=== PATIENT | male | born 1995 | race Caucasian/White ===

== ENCOUNTER 2024-02-07 19:37 | Emergency (ER) | payer OTHER, SELFPAY ==
[2024-02-07 20:01] VITALS: BP 142/86; PULSE 85; RESP 20; TEMP 37; O2SAT 99; BMI 30.1
[2024-02-07 21:37] VITALS: BP 135/78; PULSE 80; RESP 20; TEMP 37; O2SAT 99
--- NOTE | 2024-02-07 22:17 | ED_ITS ---
HPI - Chest Pain General Time Seen by Provider: 22:17 Date Seen: 02/07/24 Chief Complaint: Chest Pain Stated Complaint: Chest/abdominal pain Time Seen by Provider: 02/07/24 22:16 Source: patient, family, RN notes reviewed and old records reviewed Mode of arrival: ambulatory Limitations: no limitations History of Present Illness HPI narrative: Pelon is a very pleasant 28-year-old male with a history of chronic intermittent diarrhea and constipation without diagnosis, tobacco user in the form of 2 and vaping who comes to the emergency room for evaluation regarding chest pain. Pelon notes that tonight he was sitting on the couch when the had the sudden onset of left-sided chest pain associated with lightheadedness and difficulty breathing. This lasted about 5 minutes. He felt like his heart was pounding in his chest. He also became super hot he states. Currently he has a mild pressure in the area but not the pain he had felt earlier. He is mostly concerned in regards to his chronic abdominal discomfort. States that for as long as he can remember he has had abdominal pain mainly the left upper quadrant that would radiate to his back. He notes that he is always uncomfortable. Before he has a stool the pain will increase and then it will be relieved by stooling. He intermittently goes between nonbloody diarrhea and constipation. In the past he has had endoscopy which was normal. He also had blood work that looked good. He has no history of a colonoscopy. He denies any recent weight loss or night sweats. He does vape nicotine and notes that when he does that he has increased chest pain. However, earlier today he had to move a couch any had no discomfort at that time. Pelon has not had any recent cough cold congestion or fevers. No known exposures to COVID. He has not had any unusual weight loss or night sweats. Pelon does note that Brittany usually drinks a case of beer over the weekend and did that this past weekend. No history of nausea vomiting or heartburn. No family history of autoimmune disorders celiac disease Crohn's or ulcerative colitis. Related Data Home Medications ?Medication ?Instructions ?Recorded ?Confirmed No Known Home Medications 02/07/24 02/07/24 Allergies Allergy/AdvReac Type Severity Reaction Status Date / Time No Known Drug Allergies Allergy Verified 02/07/24 20:03 Review of Systems Status of ROS Reports: 10 or more systems reviewed and unremarkable except as noted in History and below Const Reports: fatigue; Denies: fever or chills Eyes Denies: change in vision ENMT Denies: throat pain, neck pain, difficulty swallowing or nasal congestion Cardio Reports: chest pain, lightheadedness and shortness of breath with exertion; Denies: palpitations, edema or swelling of feet/ankles Resp Reports: shortness of breath; Denies: cough or wheezing GI Reports: abdominal pain, diarrhea and constipation; Denies: nausea, vomiting, difficulty swallowing or blood in stool Denies: painful urination or urinary frequency Musculo Reports: back pain; Denies: neck pain Neuro Denies: headache Endo Reports: fatigue Allergy/Immuno Denies: wheezing PFSH PFSH Social History Smoking Status: Never smoker Do you use any of these nicotine containing products: Vaping Products Second hand tobacco smoke exposure: No How often do you have a drink containing alcohol: monthly or less How often do you have six or more drinks on one occasion: Less than monthly AUDIT-C Alcohol total score: 2 Non-prescribed substance use: marijuana (any form) Exam Narrative Exam Narrative: Pelon is alert and oriented. Presents with his is very loving and supportive. EOM is full. Face symmetrical. Heart with regular rate and rhythm and lungs are clear bilaterally. Abdomen shows no masses palpated. No significant tenderness with palpation especially left ribcage. Lower extremities without edema. Pedal pulses are intact and symmetrical. Const Vital Signs, click to edit/add: Vital Signs - 24 hr 02/07/24 20:01 02/07/24 22:54 Temperature 98.6 F Pulse Rate [Right Pulse Oximeter] 85 Respiratory Rate 20 Blood Pressure [Left Upper Arm] 142/86 H Pulse Oximetry 99 99 Oxygen Delivery Method Room Air Documenting provider has reviewed patient's vital signs: yes Course Course ED Course: Differential diagnosis includes but is not limited to acute coronary event, pericarditis, pleurisy, anxiety, biliary colic, esophagitis, irritable bowel. Will place IV and draw labs to include CBC, comprehensive panel, CRP, troponin, EKG, magnesium, lactate. Will give Ativan 0.5 mg and normal saline at this time. Vital Signs Vital signs: Initial Vital Signs Temperature 98.6 F 02/07/24 20:01 Temperature Source Temporal Artery Scan 02/07/24 20:01 Pulse Rate 85 02/07/24 20:01 Respiratory Rate 20 02/07/24 20:01 Blood Pressure 142/86 H 02/07/24 20:01 Blood Pressure Mean 104 02/07/24 20:01 Blood Pressure Position Sitting 02/07/24 20:01 Pulse Oximetry 99 02/07/24 20:01 Oxygen Delivery Method Room Air 02/07/24 20:01 Vital Signs Temperature 98.6 F 02/07/24 20:01 Pulse Rate 85 02/07/24 20:01 Respiratory Rate 20 02/07/24 20:01 Blood Pressure 142/86 H 02/07/24 20:01 Pulse Oximetry 99 02/07/24 20:01 Oxygen Delivery Method Room Air 02/07/24 20:01 Temperature 98.6 F 02/07/24 20:01 Pulse Rate 85 02/07/24 20:01 Respiratory Rate 20 02/07/24 20:01 Blood Pressure 142/86 H 02/07/24 20:01 Pulse Oximetry 99 02/07/24 22:54 Oxygen Delivery Method Room Air 02/07/24 20:01 Medications Administered Medications: Generic Name Dose Route Start Last Admin Trade Name Freq PRN Reason Stop Dose Admin Aspirin 81 mg 02/08/24 01:46 02/08/24 00:45 Aspirin 81 Mg Tab.Chew PO 02/08/24 01:47 81 mg ONCE ONE Administration Discontinued Medications Generic Name Dose Route Start Last Admin Trade Name Freq PRN Reason Stop Dose Admin Lorazepam 0.5 mg 02/07/24 22:47 02/07/24 22:56 Lorazepam 2 Mg/Ml Inj IVP 02/07/24 22:48 0.5 mg ONCE ONE Administration Omeprazole 20 mg 02/08/24 00:34 02/08/24 00:45 Omeprazole [address] PO 02/08/24 00:35 20 mg ONCE ONE Administration MDM - Chest Pain MDM Narrative Medical decision making narrative: 1. Atypical chest pain -troponins are negative x2. Patient has had resolution of his discomfort after having received Ativan. Heart rate normalized. Initial EKG did show evidence of LVH as well as T-wave inversion in the inferior lateral leads. With resolution of the pain, normalization of his heart rate he had improvement of his EKG. I was able to speak with wine and spirits clerk Dr. Matthews in regard to this patient. Hyperbaric Technologist agrees that we should schedule Pelon for a stress echo. Also agrees with baby aspirin daily as well as omeprazole. Does not feel he needs to stay overnight tonight given the fact that he is pain-free at this time. 2. Irritable bowel-do suggest colonoscopy for this young man. However, this will have to wait as he will need to undergo stress echo and rule out cardiac i ssues 1st. Will have patient follow-up with Dr. Saba in the clinic after his stress test. Dr. Saba is also able to debt management counselor patient on abdominal pain and perform colonoscopy at a later time. Omeprazole 20 mg given to patient tonight and would like to for him to follow this regimen for the next 2 weeks 3. Disposition-home at this time. Return to the emergency room for worsening symptoms and as needed. Lab Data Attestation: I reviewed the patient's lab results. Labs: Lab Results 02/07/24 02/07/24 02/07/24 Range/Units 22:50 22:55 Unknown WBC 6.98 (4.50-11.00) K/uL RBC 4.99 (4.30-5.90) m/uL Hgb 14.9 (13.5-17.5) gm/dL Hct 43.3 (37.0-53.0) % MCV 87 (80-100) fL MCH 30 (26-34) pg MCHC 34 (32-36) gm/dL RDW Coeff of Carolynn 11.4 L (11.5-15.5) % Plt Count 213 (140-440) K/uL Neut % (Auto) 73.1 H (42.0-72.0) % Lymph % (Auto) 18.6 L (20-44) % [place] % (Auto) 5.0 (0.0-11.0) % Eos % (Auto) 2.0 (0.0-7.0) % Baso % (Auto) 0.3 (0.0-3.0) % Neut # (Auto) 5.10 (1.7-7.0) K/uL Lymph # (Auto) 1.30 (0.90-2.90) K/uL [place] # (Auto) 0.30 (0.00-0.90) K/UL Eos # (Auto) 0.14 (0.00-0.50) K/uL Baso # (Auto) 0.02 (0.00-0.30) K/uL Abs Immat Gran (auto) 0.07 (0.00-0.30) K/uL Imm/Tot Granulo (auto) 1.0 % D-Dimer Quant (PE/DVT) 0.18 (0.00-0.50) ug/ml Sodium 135 (135-149) mmol/L Potassium 4.1 (3.6-5.1) mmol/L Chloride 100 (96-114) mmol/L Carbon Dioxide 26 (20-32) mmol/L Anion Gap 9 (7-15) mEq/L BUN 16 (5-24) mg/dL Creatinine 1.0 (0.5-1.5) mg/dL Estimated Creat Clear 112.54 Estimated GFR 104 ml/min Glucose 105 (60-115) mg/dL Lactate 1.1 (0.5-1.9) mmol/L Calcium 9.1 (8.4-10.6) mg/dL Total Bilirubin 1.0 (0.1-1.5) mg/dL AST 45 H (12-35) U/L ALT 47 (4-50) U/L Alkaline Phosphatase 71 (40-150) U/L C-Reactive Protein < 0.5 L (0.5-1.0) mg/dL Total Protein 7.2 (6.0-8.3) g/dL Albumin 4.7 (3.3-5.0) g/dL POC Troponin I 0.00 L (0.01-0.04) ng/ml 02/08/24 Range/Units 00:54 WBC (4.50-11.00) K/uL RBC (4.30-5.90) m/uL Hgb (13.5-17.5) gm/dL Hct (37.0-53.0) % MCV (80-100) fL MCH (26-34) pg MCHC (32-36) gm/dL RDW Coeff of Carolynn (11.5-15.5) % Plt Count (140-440) K/uL Neut % (Auto) (42.0-72.0) % Lymph % (Auto) (20-44) % [place] % (Auto) (0.0-11.0) % Eos % (Auto) (0.0-7.0) % Baso % (Auto) (0.0-3.0) % Neut # (Auto) (1.7-7.0) K/uL Lymph # (Auto) (0.90-2.90) K/uL [place] # (Auto) (0.00-0.90) K/UL Eos # (Auto) (0.00-0.50) K/uL Baso # (Auto) (0.00-0.30) K/uL Abs Immat Gran (auto) (0.00-0.30) K/uL Imm/Tot Granulo (auto) % D-Dimer Quant (PE/DVT) (0.00-0.50) ug/ml Sodium (135-149) mmol/L Potassium (3.6-5.1) mmol/L Chloride (96-114) mmol/L Carbon Dioxide (20-32) mmol/L Anion Gap (7-15) mEq/L BUN (5-24) mg/dL Creatinine (0.5-1.5) mg/dL Estimated Creat Clear Estimated GFR ml/min Glucose (60-115) mg/dL Lactate (0.5-1.9) mmol/L Calcium (8.4-10.6) mg/dL Total Bilirubin (0.1-1.5) mg/dL AST (12-35) U/L ALT (4-50) U/L Alkaline Phosphatase (40-150) U/L C-Reactive Protein (0.5-1.0) mg/dL Total Protein (6.0-8.3) g/dL Albumin (3.3-5.0) g/dL POC Troponin I 0.00 L (0.01-0.04) ng/ml Imaging Data Chest x-ray: Attestation: I have reviewed the pertinent imaging results. My impression: No evidence of pneumonia or widened mediastinum. Radiologist's impression: Cardiovascular and mediastinum: Heart size and vasculature are normal in caliber and appearance. Lungs and pleural spaces: Lungs are clear. No sign of infiltrate or mass. No sign of pleural effusion. No pneumothorax. Bones and soft tissues: No significant findings. IMPRESSION: Unremarkable chest. ECG Data Attestation: I personally reviewed and interpreted this ECG as follows: ECG interpretation date: 02/07/24 Interpretation: EKG by my read shows sinus tachycardia at a rate of 101. Patient has T-wave inversion in the inferior lateral leads. I do not have old EKG for comparison. No significant ST depression. QT and SD intervals within normal limits. EKG 2. Shows sinus rhythm and resolution of the T-wave inversion in lead 2 and the lateral leads. Discharge Plan Discharge Clinical Impression: Atypical chest pain, Abnormal ECG, Irritable bowel Patient Disposition: Home, Self-Care Condition: Improved Additional Instructions: At this time I recommend continuing aspirin 81 mg daily until you were seen in follow-up after your stress echo. You will be called tomorrow with appointment for stress echo. If you do not hear from us tomorrow please call [phone] and ask to speak to automotive upholsterer for stress test. Until you have your stress echo, please do not exert herself. This would include running, heavy activity, sexual activity. Return to the emergency room for any increasing pain and as needed. Nicotine should be avoided as it will also increase your heart rate. In regards to your chronic abdominal discomfort, continue omeprazole which is [id number] 1 tablet or 20 mg every evening. Please avoid chewing and alcohol during this time. I would like you to follow-up from your stress echo with physician Dr. Saba in the clinic. We will also make this appointment for you. He will also be able to talk to you about scheduling a colonoscopy at a later time. Return to the emergency room as needed. Prescriptions: No Action No Known Home Medications Follow Up/Referrals: Provider,Not a Local [Primary Care Provider] - Stand Alone Forms: [employer]jee Info Instructions
--- NOTE | 2024-02-07 22:44 | CRLHL7_ITS ---
For Patients: As a result of the Century Cures Act, medical imaging exams and procedure reports are released immediately into your electronic medical record. You may view this report before your referring provider. If you have questions, please contact your health care provider. INDICATION: Chest pain. TECHNIQUE: Chest 1 view. COMPARISON: None. FINDINGS: Cardiovascular and mediastinum: Heart size and vasculature are normal in caliber and appearance. Lungs and pleural spaces: Lungs are clear. No sign of infiltrate or mass. No sign of pleural effusion. No pneumothorax. Bones and soft tissues: No significant findings. IMPRESSION: Unremarkable chest. Dictated by Eric Marcum MD @ 02/07/2024 11:45:45 PM (Electronically Signed)
[2024-02-07 22:54] VITALS: O2SAT 99
[2024-02-07] MEDS: LORazepam 2 MG/ML inj 0.5 MG IVP (22:56)
[2024-02-07 22:58] LABS: Lactate* 1.1 mmol/L (0.5-1.9)
[2024-02-07 23:21] LABS: Albumin* 4.7 g/dL (3.3-5.0); Chloride* 100 mmol/L (96-114); Sodium* 135 mmol/L (135-149)
[2024-02-07 23:22] LABS: Potassium* 4.1 mmol/L (3.6-5.1)
[2024-02-07 23:24] LABS: Basophils Absolute Auto 0.02 K/uL (0.00-0.30); Basophils Percent Auto 0.3 % (0.0-3.0); Eosinophils Absolute Auto 0.14 K/uL (0.00-0.50); Hematocrit 43.3 % (37.0-53.0); Hemoglobin* 14.9 gm/dL (13.5-17.5); Immature Granulocytes Abs Auto 0.07 K/uL (0.00-0.30); Lymphocytes Percent Auto 18.6 % (20-44); Mean Corpuscular HGB Conc 34 gm/dL (32-36); Mean Corpuscular Hemoglobin 30 pg (26-34); Mean Corpuscular Volume 87 fL (80-100); Neutrophils Percent Auto 73.1 % (42.0-72.0); Platelet Count* 213 K/uL (140-440); RDW Coefficient of Variation % 11.4 % (11.5-15.5); Red Blood Count 4.99 m/uL (4.30-5.90); White Blood Count* 6.98 K/uL (4.50-11.00)
[2024-02-07 23:25] LABS: Alanine Aminotransferase* 47 U/L (4-50); Alkaline Phosphatase* 71 U/L (40-150); Anion Gap 9 mEq/L (7-15); Aspartate Amino Transferase* 45 U/L (12-35); Blood Urea Nitrogen* 16 mg/dL (5-24); Calcium* 9.1 mg/dL (8.4-10.6); Carbon Dioxide* 26 mmol/L (20-32); Est. Creatinine Clearance* 112.54; Estimated Glomerular Filt Rate 104 ml/min; Glucose* 105 mg/dL (60-115); Total Protein* 7.2 g/dL (6.0-8.3)
[2024-02-07 23:28] LABS: C Reactive Protein* < 0.5 mg/dL (0.5-1.0); Slide Review Reflex No
[2024-02-07 23:37] VITALS: BP 139/95; PULSE 75; RESP 20; TEMP 37; O2SAT 99
[2024-02-08 00:16] LABS: D Dimer Quantitative* 0.18 ug/ml (0.00-0.50)
[2024-02-08] MEDS: OMEPRAZOLE 20 MG CAPSULE DR PO (00:45)
[2024-02-08] MEDS: ASPIRIN 81 MG TAB.CHEW PO (00:45)
[2024-02-08 01:45] VITALS: BP 132/91; PULSE 79; RESP 20; TEMP 37; O2SAT 99
[2024-02-08 02:04] VITALS: BP 132/91; PULSE 79; RESP 20; TEMP 37
== END 2024-02-08 02:04 | disposition home or self-care (01) ==
PROVIDERS: Emergency Provider Family Medicine
DX: R07.9 Chest pain, unspecified (principal); R94.31 Abnormal electrocardiogram [ECG] [EKG]
CPT/HCPCS: 36415; 71045; 80053; 83605; 84484; 85025; 85379; 86140; 93005; 94761; 96374; 99284; 99285; A9270; J2060

== ENCOUNTER 2024-02-08 13:34 | Outpatient (CLI) | payer OTHER, SELFPAY ==
[2024-02-08 15:11] VITALS: BP 144/76; PULSE 88
--- NOTE | 2024-02-08 15:22 | W.PM.STED ---
Stress Test Note Date Date Seen: 02/08/24 Date of test: 02/08/24 Providers Primary care provider: Not a Local Provider Stress test physician: Stanislav Chan Stress Test Note Stress test ordered: Stress Echo Indication for test: Chest pain Results discussion: This pleasant 28-year-old gentleman presents for the above test, after reviewing the cardiac stress test medical history form, and his recent ER visit, he understands the risks benefits and side effects and would like to proceed. Pretest EKG shows normal sinus rhythm with a ventricular rate of 71. No acute ST wave changes are noted. Standard Julian protocol is employed over a time course of14 in, his maximum heart rate [id number], this is [id number] of the maximum. During this test there is no specific EKG wave changes, suggestive of ischemia, he had no chest pain shortness of breath, and the conditioning was felt to be excellent. Review of the echo done by myself and the tech, showed no acute wall motion abnormalities, final read by Cardiology pending. Final Review of the tracing showed no evidence of any dysrhythmias wrist T-wave changes. Impression: Negative electrographic portion of stress echo, subjectively negative Follow up suggested: He already has a follow-up appointment made with the primary care physician, who will go forward with this he probably will need with seems like a GI workup given her above symptoms. He left this testing facility in excellent condition.
== END 2024-02-08 15:21 | disposition home or self-care (01) ==
LOC: STRESS 13:35
PROVIDERS: Visit Provider Family Medicine
DX: R07.89 Other chest pain (principal)
CPT/HCPCS: 93016; 93325; 93351